=== PATIENT | male | born 1995 | race American Indian/Alaskan Native ===

== ENCOUNTER 2020-10-04 14:46 | Emergency (ER) | payer SELFPAY ==
[2020-10-04] MEDS ORDERED: DIPHtheria,PERTUSSIS(ACELL),TETANUS VACCINE/PF 0.5 ML VIAL IM ONE ×2 (15:23→19:30)
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
[2020-10-04 17:49] VITALS: BP 116/64
[2020-10-04] MEDS ORDERED: NEOMY 3.5 MG/BACIT 400 UNITS/POLY B 5000 UNITS/GM OINT PACKET TP ONE (17:53)
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
== END 2020-10-04 19:35 | disposition home or self-care (01) ==
LOC: ED 14:46
DX: S91.302A Unspecified open wound, left foot, initial encounter (principal); W34.00XA Accidental discharge from unspecified firearms or gun, initial encounter; Y93.89 Activity, other specified; Y92.89 Other specified places as the place of occurrence of the external cause; Y99.8 Other external cause status
CPT/HCPCS: 90471; 90715; 99283